=== PATIENT | female | born 1990 | race Two or more races ===

== ENCOUNTER 2025-03-25 14:47 | Emergency (ER) | payer OTHER, MEDICAID, SELFPAY ==
[2025-03-25 15:44] VITALS: BP 143/91; PULSE 82; RESP 16; TEMP 37.2; O2SAT 97; BMI 34.7
--- NOTE | 2025-03-25 15:51 | XR_ITS ---
Examination: CT lumbar spine, without contrast. 2-D sagittal reconstructions. 2-D coronal reconstructions. 3-D reconstructions. Date and time of exam:March 25, 2025, 1703 hours INDICATIONS: Onset lower back pain beginning one week ago CTDI: vol (mGy):34.1 DLP: (mGycm):1092 Technique: Multiple 1.25 mm axial sections of the lumbar spine without intravenous contrast have been obtained. 2-D sagittal and coronal reconstructions have been obtained. 3-D reconstructions have been obtained. Low dose protocols were performed. One or more of the following dose reduction techniques were used; automated exposure control, adjustment of the mA and/or KV according to patient size, use of iterative reconstruction technique. Findings: Adequate alignment lumbar vertebral bodies No lumbar fracture No significant lumbar disc narrowing Lumbar pedicles, laminae transverse and posterior spinous processes intact L5-S1 5 mm central lumbar disc bulge contiguous with the right and left S1 nerve roots, extending to the right intervertebral foramen with mild right L5 ganglionic compression L4-L5 3 mm central lumbar disc bulge More cephalad levels unremarkable IMPRESSION: L5-S1 5 mm central lumbar disc bulge contiguous with the right and left S1 nerve roots, extending to the right intervertebral foramen with mild right L5 ganglionic compression L4-L5 3 mm central lumbar disc bulge Consider elective MRI lumbar spine without contrast follow-up
--- NOTE | 2025-03-25 15:52 | EDNOTE_ITS ---
<Statement entered by Rachael Diallo MD - 04/02/25 04:31> As co-signing physician, I was present and available for consult prn. I concur with the plan and care as documented by the midlevel provider. ED Back Injury Pain RME/HPI General Chief Complaint: Back Pain/Injury Stated Complaint: PAIN FROM WAIST DOWN X2WKS WORSE TODAY Time Seen by Provider: 03/25/25 15:08 Arrival date/time: 03/25/25 14:47 This is a 34-year-old female that comes in with complaints of lower back pain that is been going on and off for the past few weeks. Patient denies any trauma. Patient states that she has not been able to be comfortable at home. Patient denies numbness and tingling. Patient denies any any loss of bowel or bladder control. Related Data Previous Rx's ?Medication ?Instructions ?Recorded docusate sodium 100 mg capsule 100 mg PO BID #60 caps 11/04/21 (Colace) ibuprofen 800 mg tablet 800 mg PO Q6H PRN pain #120 tabs 11/04/21 lanolin 50 % topical ointment 1 applic topical TID PRN skin 11/04/21 irritation #15 tubes labetalol 200 mg tablet 200 mg PO BID #60 tabs 11/06 hydrocortisone 2.5 % topical cream 1 applic topical BI D PRN itching 09/16/24 or rash #20 grams cyclobenzaprine 10 mg tablet 10 mg PO BID #14 tabs ibuprofen 800 mg tablet 800 mg PO Q6H PRN pain #14 t abs 03/25/25 Allergies Allergy/AdvReac Type Severity Reaction Status Date / Time No Known Allergies Allergy Verified 12/07/19 11:40 Review of Systems Review of Systems Systems Reviewed: All systems reviewed, normal except as documented Past Medical History Surgical History OTHER SURGICAL HX: Denies past surgical history Social History SMOKING STATUS: Never smoker SUBSTANCE USE: does not use ALCOHOL: Never Past Medical History Comments PMH COMMENT: Obesity ED Exam General General appearance: Present alert and in no apparent distress Head Head exam: Present atraumatic Eye Eye exam: Present normal appearance, PERRL and EOMI ENT ENT exam: Present normal exam, normal oropharynx and mucous membranes moist Neck Neck exam: Present normal inspection, full ROM and trachea midline Chest Chest inspection: Present normal inspection and symmetric chest wall rise Respiratory Respiratory exam: Present normal lung sounds bilaterally Cardiovascular Cardiovascular exam: Present regular rate Abdominal Exam Abdominal exam: Present soft Extremities Exam Extremities exam: Present normal inspection and full ROM Back Exam Back exam: Present full ROM and other (pain to lateral muscles on both sides to palapation, no pain over spinal processes) Neurological Exam Neurological exam: Present alert, oriented X3 and CN II-XII intact Psychiatric Psychiatric exam: Present normal affect and normal mood Skin Skin exam: Present warm, dry, intact and normal color Course Quality Measures none Orders Category Date Time Status CT lumbar spine wo con Stat Exams 03/25/25 15:51 Completed HCG Qualitative,Urine Stat Lab 03/25/25 15:55 Completed Urinalysis, C/S if Indicated Stat Lab 03/25/25 15:55 Completed CYCLObenzaPRINE [Flexeril] Med 03/25/25 15:54 Discontinued 10 mg PO X1 ONE HYDROcodone*/APAP 5/325 [[place] 5/325] Med 03/25/25 18:03 Discontinued 1 tab PO X1 ONE Ibuprofen Tab [Motrin Tab] Med 03/25/25 15:54 Discontinued 800 mg PO X1 ONE Vital Signs Vital signs: Vital Signs Temperature 98.9 F 03/25/25 15:44 Pulse Rate 82 03/25/25 15:44 Respiratory Rate 16 03/25/25 15:44 Blood Pressure 143/91 H 03/25/25 15:44 Pulse Oximetry (%) 97 03/25/25 15:44 Oxygen Delivery Method Room Air 03/25/25 15:44 Back Pain / Injury MDM Narrative MDM Narrative:: UA was unremarkable. lumbar CT shows: Findings: Adequate alignment lumbar vertebral bodies No lumbar fracture No significant lumbar disc narrowing Lumbar pedicles, laminae transverse and posterior spinous processes intact L5-S1 5 mm central lumbar disc bulge contiguous with the right and left S1 nerve roots, extending to the right intervertebral foramen with mild right L5 ganglionic compression L4-L5 3 mm central lumbar disc bulge More cephalad levels unremarkable IMPRESSION: L5-S1 5 mm central lumbar disc bulge contiguous with the right and left S1 nerve roots, extending to the right intervertebral foramen with mild right L5 ganglionic compression L4-L5 3 mm central lumbar disc bulge Consider elective MRI lumbar spine without contrast follow-up pt is to follow up with primayr provider in 1-2 days come back to EDif symptoms change or worsen. Patient data External records reviewed:: [facility] previous records Clinical information provided by:: patient Social determinants that could affect healthcare access:: none Patient has the following chronic illnesses:: none How is presenting disease/condition affected by chronic disease/condition?: no chronic disease Evaluation data The following diagnostics were reviewed and interpreted by me:: radiology exam(s) Lab and/or radiology exams considered but not ordered:: none Interpretation Summary: see note Medications / Prescriptions Medications or Prescriptions considered but not ordered:: none Medication administrations:: Medication Administration History Discontinued Medications Hydrocodone Bitart/Acetaminophen (Hydrocodone/Apap 5/325 Tablet) 1 tab PO X1 ONE Stop: 03/25/25 18:04 Last Admin: 03/25/25 18:10 Dose: 1 tab Documented By: ALINA Cyclobenzaprine HCl (Cyclobenzaprine 5 Mg Tablet) 10 mg PO X1 ONE Stop: 03/25/25 15:55 Last Admin: 03/25/25 16:45 Dose: 10 mg Documented By: ALINA Ibuprofen (Ibuprofen Tab 400 Mg Tablet) 800 mg PO X1 ONE Stop: 03/25/25 15:55 Last Admin: 03/25/25 16:44 Dose: 800 mg Documented By: ALINA see [facility] Consultations Consultation(s) initiated? (list below): No Diagnosis Most likely diagnosis given after review of the tests above:: none Admission Indicated Admission indicated?: not indicated Admission Request Was there a request for admission?: No Disposition Plan Disposition Plan: Discharge Discharge Attestation Discharge Attestation: The patient and all family members were given an opportunity to ask questions and understood the discharge instructions. Discharge instructions specifically effects, indications for sooner follow up or return to the emergency department, and the expected course of current diagnosis. Patient condition: Stable Discharge Plan Plan Patient Disposition: HOME (Self Care) Patient condition on transfer: Stable Prescriptions/Referrals Prescriptions/Med Rec: New ibuprofen 800 mg tablet 800 mg PO Q6H PRN (Reason: pain) Qty: 14 0RF cyclobenzaprine 10 mg tablet 10 mg PO BID Qty: 14 0RF No Action ibuprofen 800 mg tablet 800 mg PO Q6H MDD 4 PRN (Reason: pain) Qty: 120 0RF docusate sodium [Colace] 100 mg capsule 100 mg PO BID Qty: 60 0RF lanolin 50 % ointment 1 applic topical TID PRN (Reason: skin irritation) Qty: 15 0RF labetalol 200 mg tablet 200 mg PO BID Qty: 60 0RF Rx Instructions: Take 1 tablet twice a day hydrocortisone 2.5 % cream 1 applic topical BID PRN (Reason: itching or rash) Qty: 20 0RF Referrals: Elmo Plunkett MD [Primary Care Provider] - In 1 week Problem List Clinical Impression: Back pain Patient/Caregiver Discharge Instructions Discharge Activity: activity as tolerated Education Materials: ED Back Pain (Acute or Chronic) Additional Instructions: lumbar CT shows: Findings: Adequate alignment lumbar vertebral bodies No lumbar fracture No significant lumbar disc narrowing Lumbar pedicles, laminae transverse and posterior spinous processes intact L5-S1 5 mm central lumbar disc bulge contiguous with the right and left S1 nerve roots, extending to the right intervertebral foramen with mild right L5 ganglionic compression L4-L5 3 mm central lumbar disc bulge More cephalad levels unremarkable IMPRESSION: L5-S1 5 mm central lumbar disc bulge contiguous with the right and left S1 nerve roots, extending to the right intervertebral foramen with mild right L5 ganglionic compression L4-L5 3 mm central lumbar disc bulge Consider elective MRI lumbar spine without contrast follow-up Please make sure to follow-up with primary provider in 1 to 2 days. Come back to the emergency room if symptoms change or worsen. Print Language: Peruvian Stand Alone Forms: [facility] Award Info., Patient Portal Info Letter BRIDGETTE/AMBROSE Supervising Physician BRIDGETTE/AMBROSE Supervising Physician: janice
[2025-03-25 16:09] LABS: Collection Type, Urine Voided
[2025-03-25 16:23] LABS: Bilirubin,Urine Negative (Negative); Blood,Urine Negative (Negative); Clarity,Urine Clear (Clear/Hazy); Color,Urine Lt-Yellow (Lt Yel-Yel); Culture Indicated,Urine Not Indicated; Glucose, Urine Negative (Negative); Ketones,Urine Negative (Negative); Leukocyte Esterase,Urine Negative (Negative); Nitrite,Urine Negative (Negative); Protein,Urine Negative (Neg - Trace); RBC,Urine 3 /hpf (0-3); Specific Gravity,Urine 1.025 (1.001-1.035); Squamous Epithelial Cell,Urine 2 /hpf (0-5); Urobilinogen,Urine Negative mg/dL (0.0-1.0); WBC,Urine 2 /hpf (0-5)
[2025-03-25 16:31] LABS: HCG Qualitative,Urine Negative
[2025-03-25] MEDS: IBUPROFEN TAB 400 MG TABLET 800 MG PO (16:44)
[2025-03-25] MEDS: CYCLObenzaPRINE 5 MG TABLET 10 MG PO (16:45)
[2025-03-25] MEDS: HYDROcodone/APAP 5/325 TABLET 1 TAB PO (18:10)
--- NOTE | 2025-03-25 18:56 | PC.NURSE ---
PT WAS BEING CALLED TO BE DISCHARGED BUT DID NOT ANSWER WHEN WAS NOT FOUND OUTSIDE.
== END 2025-03-25 20:17 | disposition home or self-care (01) ==
PROVIDERS: Nurse Practitioner Family; Emergency Provider Emergency Medicine; PCP Family Medicine
DX: M51.370 Other intervertebral disc degeneration, lumbosacral region with discogenic back pain only (principal); M51.360 Other intervertebral disc degeneration, lumbar region with discogenic back pain only
CPT/HCPCS: 72131; 81001; 81025; 99284; A9270

== ENCOUNTER → 2025-05-17 | Outpatient (CLI) | payer OTHER, MEDICAID, SELFPAY ==
--- NOTE | 2025-05-17 09:00 | XR_ITS ---
Examination: MRI lumbar spine without contrast Date and time of exam: May 17, 2020 0503 hours INDICATIONS: Low back pain months Technique: Multiple MRI axial and sagittal sections lumbar spine. Sagittal T2-weighted images, TR 3500, TE 118 T1 weighted transverse sections, TR 688 T8.5, T2-weighted sagittal sections T1 weighted sagittal sections TR 621, TE 30 T2 axial sections, TR 4, 190, TE 84. Findings: Adequate alignment lumbar vertebral bodies No lumbar fracture Disassociation lower 2 lumbar levels Adequate marrow signal lumbar vertebral bodies L5-S1 6 mm central lumbar disc bulge contiguous with the left S1 nerve root, extending to the left foramen with mild left L5 ganglionic compression L4-L5 3 mm central lumbar disc bulge More cephalad levels unremarkable IMPRESSION: L5-S1 6 mm central lumbar disc bulge contiguous with the left S1 nerve root and producing mild left L5 ganglionic compression L4-L5 3 mm central lumbar disc bulge
== END | disposition home or self-care (01) ==
PROVIDERS: PCP Family Medicine; Referring Provider Family Medicine; Visit Provider Family Medicine
DX: M51.360 Other intervertebral disc degeneration, lumbar region with discogenic back pain only (principal); M51.370 Other intervertebral disc degeneration, lumbosacral region with discogenic back pain only; G95.20 Unspecified cord compression
CPT/HCPCS: 72148